=== PATIENT | male | born 1985 | race Caucasian/White ===

== ENCOUNTER → 2024-10-08 11:59 | Outpatient (CLI) | payer OTHER, SELFPAY ==
--- NOTE | 2024-10-08 12:02 | DI.MRI.S_ITS ---
PROCEDURE: MR CHEST WO/W CON INDICATIONS: MASS/LUMP ON TRUNK TECHNIQUE: Coronal and axial T1 spin echo and STIR, axial T2 fast spin echo with fat saturation, sagittal T1 fast spin echo with fat saturation and STIR through the lower anterior chest. After the administration of intravenous contrast material, additional T1 spin echo sequences without saturation were obtained in the axial, sagittal, and coronal planes. COMPARISON: [facility], CT, CT CHEST WITH CONTRAST, 09/11/2024, 10:49. FINDINGS: Image quality: Excellent. Region of interest: Midline anterior chest overlying the lower sternum. Bones: Nearby osseous structures demonstrate normal overall marrow signal. Soft tissues: No enhancing soft tissue mass or circumscribed lipoma is seen. A unilateral left sternalis muscle is incidentally noted slightly more superiorly, a normal anatomic variant. Included portions of the anterior chest and upper abdomen demonstrate no acute abnormality. IMPRESSION: No significant abnormality is seen at the palpable area of concern near the lower sternum. Approved by: Kulwant Ibarra M.D. on 10/08/2024 at 16:32
== END ==
DX: R22.2 Localized swelling, mass and lump, trunk (principal)
CPT/HCPCS: 71552; A9579